=== PATIENT | male | born 1995 | race Caucasian/White ===

== ENCOUNTER 2016-09-08 17:49 | Emergency (ER) | payer OTHER ==
[2016-09-08 18:24] VITALS: PULSE 80; TEMP 97.9
[2016-09-08] MEDS ORDERED: NS 1,000 ML IV ONE ×3 (18:42→19:20)
[2016-09-08] MEDS ORDERED: METOCLOPRAMIDE 10 MG/2 ML VIAL IVP ONE (18:42)
[2016-09-08 18:48] LABS: % IMMATURE GRANULYOCYTES 0.3 % (0.0-1.1); ABSOLUTE IMMATURE GRANULOCYTES 0.03 10^3/uL (0.00-0.10); ADD DIFF? NO; ADD MORPH? NO; ADD SCAN? NO; ATYPICAL LYMPHOCYTE FLAG 0 (0-99); FRAGMENT RBC FLAG 0 (0-99); HEMOGLOBIN 16.4 g/dL (13.7-17.5); LEFT SHIFT FLG 0 (0-99); LIPEMIA HEMOLYSIS FLAG 90 (0-99); MEAN CELL HEMOGLOBIN 31.4 pg (27.9-34.1); MEAN CELL HEMOGLOBIN CONCENTR. 36.4 g/dL (32.4-36.7); MEAN CELL VOLUME 86.2 fL (81.5-99.8); MEAN PLATELET VOLUME 10.4 fL (8.7-11.7); PLATELET CLUMPS FLAG 0 (0-99); PLATELET COUNT 294 10^3/uL (150-400); RED BLOOD CELL COUNT 5.22 10^6/uL (4.40-6.38); RED CELL DISTRIBUTION WIDTH 12.3 % (11.5-15.2)
[2016-09-08 18:54] LABS: ANION GAP 22 mEq/L (8-16); CALCIUM 10.4 mg/dL (8.5-10.4); CARBON DIOXIDE 21 mEq/l (22-31); CHLORIDE 100 mEq/L (97-110); CREATININE 0.7 mg/dL (0.7-1.3); GLOMERULAR FILTRATION RATE > 60; GLUCOSE 96 mg/dL (70-100); POTASSIUM 3.6 mEq/L (3.5-5.2); SODIUM 143 mEq/L (134-144)
[2016-09-08] MEDS ORDERED: KETOROLAC 15 MG/1 ML SDV IVP ONE (19:12)
--- NOTE | 2016-09-08 19:25 | UCPHY ---
H & P Patient Type: Established Chief Complaint Nursing Narrative: n/v x 2 days . Many times//. lightheaded with standing. Hr 80 laying HR 115 standing. smokes a lot of "pot" Time Seen by Provider: 09/08/16 18:32 HPI/ROS: This patient developed onset of vomiting over the past 2 days with 16 episodes are so yesterday and about 6 episodes today. He is accompanied by his mother. 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 He says this episode is similar to previous. He is unable to tolerate significant p. o. fluids without vomiting. He reports intermittent crampy epigastric pain associated with this. Pain is moderate intensity at its worst. Pain does not radiate to his back. ROS: No high fevers or chills. HEENT: No recent URI symptoms. Pulmonary: No cough. Cardiovascular: No syncope. No significant orthostatics symptoms. GI : No hematemesis or tarry stools. He reports slightly loose stools. Musculoskeletal: Patient reports paraspinous lumbar to the mid thoracic back pain this started part way through his vomiting. 10 point ROS is otherwise negative Source: Patient Exam Limitations: No limitations - Personal History Current Tetanus/Diphtheria Vaccine: Unsure Current Tetanus Diphtheria and Acellular Pertussis (TDAP): Unsure Tetanus Vaccine Date: < 10 YEARS - Medical/Surgical History PMH: Hyperemesis at times since the child per mother Hx Asthma: No Hx Chronic Respiratory Disease: No Hx Diabetes: No Hx Cardiac Disease: No Hx Renal Disease: No Hx Cirrhosis: No Hx Alcoholism: No Hx HIV/AIDS: No Hx Splenectomy or Spleen Trauma: No Other PMH: APPENDECTOMY - Family History Significant Family History: No pertinent family hx - Social History Smoking Status: Current some day smoker Alcohol Use: Occasionally Drug Use: Marijuana (He reports marijuana every other day or so typically 2 times a day when he does smoke.) - Physical Exam Exam: Vital signs are normal General Appearance: Alert, no distress. Eyes: Pupils equal and round no pallor or injection. ENT, Mouth: Mucous membranes dry. Respiratory: There are no retractions, lungs are clear to auscultation. Cardiovascular: Regular rate and rhythm. Gastrointestinal: Abdomen is soft and nontender, no masses, bowel sounds normal. Neurological: Alert with focal deficits Skin: Warm and dry, no rashes. Musculoskeletal: Neck is supple nontender. Back: Positive paraspinous muscular tenderness-mild bilaterally Extremities are symmetrical, full range of motion. Psychiatric: Mildly anxious. Otherwise affect normal. DIFFERENTIAL DIAGNOSIS: After history and physical exam differential diagnosis was considered for cyclic Hyperemesis, marijuana hyperemesis, viral gastroenteritis, dehydration Constitutional: Initial Vital Signs Temperature (C) 36.6 C 09/08/16 18:20 Heart Rate 80 09/08/16 18:20 Respiratory Rate 16 09/08/16 18:20 Blood Pressure 124/65 H 09/08/16 18:20 O2 Sat (%) 98 09/08/16 18:20 O2 Delivery Mode Room Air Allergies/Adverse Reactions: No Known Allergies Allergy (Verified 09/08/16 18:23) Home Medications: Medication Instructions Recorded Metoclopramide HCl [Reglan] 5 mg PO Q6 PRN #4 tablet 09/08/16 Promethazine HCl [Phenergan 50mg 50 mg NH Q12 PRN #4 suppr 09/08/16 supp (*)] Medical Decision Making ED Course/Re-evaluation: IV normal saline, Reglan and Benadryl with resolution of nausea and vomiting. Toradol for muscular back pain with some relief. Review of his labs reveals no significant metabolic abnormalities. Mild leukocytosis. Lipase is normal. 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 I encouraged patient to stop marijuana, will try Reglan orally or Phenergan suppositories if needed for his vomiting at home. - Data Points Laboratory Results: Laboratory Results 09/08/16 18:18 09/08/16 18:18 09/08/16 09/08/16 09/08/16 18:18 18:18 18:18 WBC 11.29 10^3/uL H 10^3/uL (3.80-9.50) RBC 5.22 10^6/uL 10^6/uL (4.40-6.38) Hgb 16.4 g/dL g/dL (13.7-17.5) Hct 45.0 % % (40.0-51.0) MCV 86.2 fL fL (81.5-99.8) MCH 31.4 pg pg (27.9-34.1) MCHC 36.4 g/dL g/dL (32.4-36.7) RDW 12.3 % % (11.5-15.2) Plt Count 294 10^3/uL 10^3/uL (150-400) MPV 10.4 fL fL (8.7-11.7) Neut % (Auto) 79.1 % H % (39.3-74.2) Lymph % (Auto) 13.1 % L % (15.0-45.0) Sandoval % (Auto) 7.4 % % (4.5-13.0) Eos % (Auto) 0.0 % L % (0.6-7.6) Baso % (Auto) 0.1 % L % (0.3-1.7) Nucleat RBC Rel Count 0.0 % % (0.0-0.2) Absolute Neuts (auto) 8.94 10^3/uL H 10^3/uL (1.70-6.50) Absolute Lymphs (auto) 1.48 10^3/uL 10^3/uL (1.00-3.00) Absolute Monos (auto) 0.83 10^3/uL H 10^3/uL (0.30-0.80) Absolute Eos (auto) 0.00 10^3/uL L 10^3/uL (0.03-0.40) Absolute Basos (auto) 0.01 10^3/uL L 10^3/uL (0.02-0.10) Absolute Nucleated RBC 0.00 10^3/uL 10^3/uL (0-0.01) Immature Gran % 0.3 % % (0.0-1.1) Immature Gran # 0.03 10^3/uL 10^3/uL (0.00-0.10) Sodium 143 mEq/L mEq/L (134-144) Potassium 3.6 mEq/L mEq/L (3.5-5.2) Chloride 100 mEq/L mEq/L (97-110) Carbon Dioxide 21 mEq/l L mEq/l (22-31) Anion Gap 22 mEq/L H mEq/L (8-16) BUN 21 mg/dL mg/dL (7-23) Creatinine 0.7 mg/dL mg/dL (0.7-1.3) Estimated GFR > 60 Glucose 96 mg/dL mg/dL (70-100) Calcium 10.4 mg/dL mg/dL (8.5-10.4) Lipase 27.0 IU/L IU/L (23-300) Medications Given: Discontinued Medications Diphenhydramine HCl (Benadryl Injection) 25 mg IVP EDNOW ONE Stop: 09/08/16 18:43 Last Admin: 09/08/16 18:50 Dose: 25 mg Sodium Chloride (Ns) 1,000 mls @ 0 mls/hr IV ONCE ONE PRN Reason: Wide Open Stop: 09/08/16 18:43 Last Admin: 09/08/16 18:30 Dose: 1,000 mls Sodium Chloride (Ns) 1,000 mls @ 0 mls/hr IV ONCE ONE PRN Reason: Wide Open Stop: 09/08/16 18:51 Last Admin: 09/08/16 18:50 Dose: 1,000 mls Sodium Chloride (Ns) 1,000 mls @ 0 mls/hr IV ONCE ONE PRN Reason: Wide Open Stop: 09/08/16 19:21 Last Admin: 09/08/16 19:20 Dose: 1,000 mls Ketorolac Tromethamine (Toradol) 15 mg IVP EDNOW ONE Stop: 09/08/16 19:13 Last Admin: 09/08/16 19:20 Dose: 15 mg Metoclopramide HCl (Reglan Injection) 10 mg IVP EDNOW ONE Stop: 09/08/16 18:43 Last Admin: 09/08/16 18:50 Dose: 10 mg Departure - Departure Disposition: Home, Routine, Self-Care Clinical Impression: Dehydration Vomiting Qualifiers: Vomiting type: unspecified Vomiting Intractability: unspecified Nausea presence : with nausea Qualified Code(s): R11.2 - Nausea with vomiting, unspecified Condition: Good Instructions: Acute Nausea and Vomiting (ED) Additional Instructions: Diagnosis: Vomiting 2. Dehydration Plan: Stop marijuana for some period of time as this may contribute to vomiting. Reglan pills for nausea or Phenergan suppositories for vomiting but do not use both at the same time since there is the same class of medication. Light diet to feel improved Go to the emergency department for any significant worsening despite the treatment plan. Referrals: Ashley Ziegler MD [Primary Care Provider] - As per Instructions Prescriptions: Metoclopramide HCl [Reglan] 5 mg PO Q6 PRN #4 tablet PRN Reason: nausea Promethazine HCl [Phenergan 50mg supp (*)] 50 mg NH Q12 PRN #4 suppr PRN Reason: vomiting - PQRS PQRS Measurement: NA
[2016-09-08 20:05] VITALS: BP 119/62; RESP 14; O2SAT 95
== END 2016-09-08 20:30 | disposition home or self-care (01) ==
LOC: CED 17:49
DX: R11.10 Vomiting, unspecified (principal); E86.0 Dehydration; R10.13 Epigastric pain
CPT/HCPCS: 80048-PO; 83690-PO; 85025-PO; 96361-PO; 96374-PO; 96375-PO; 99214-PO; G0463-PO; J1200; J1885; J2765